=== PATIENT | female | born 1950 | race African-American/Black ===

== ENCOUNTER 2018-10-28 14:10 | Emergency (ER) | payer MEDICARE, MEDICAID ==
[~2018-10-28] VITALS: Ht 165.1 cm; Wt 76.0 kg
[2018-10-28 18:29] LABS: CHLORIDE 103 mEq/L (98-107)
[2018-10-28 18:30] LABS: INR 1.1; PROTHROMBIN TIME 10.8 sec (9.6-11.0)
[2018-10-28 18:35] LABS: BASOPHILS % 0.5 % (0.0-2.0); EOSINOPHILS % 1.6 % (0.0-5.0); HEMATOCRIT. 36.1 % (36.0-48.0); HEMOGLOBIN. 12.3 g/dL (12.0-16.0); LYMPHOCYTES % 33.7 % (20.0-50.0); MEAN CORPUSCULAR HEMOGLOBIN 31.9 pg (28.0-32.0); MEAN PLATELET VOLUME 8.9 fl (7.4-10.4); MONOCYTES % 8.4 % (2.0-8.0); NEUTROPHILS % 55.8 % (40.0-76.0); PLATELET 209 x1000/uL (130-400); RED BLOOD CELL COUNT 3.84 mill/uL (4.2-5.4); RED CELL DISTRIBUTION WIDTH 14.5 % (11.6-14.6)
[2018-10-28 18:41] LABS: CLARITY URINE CLOUDY (CLEAR); COLOR URINE YELLOW (YELLOW); KETONES URINE 1+ (NEGATIVE); LEUKOCYTE ESTERASE URINE 1+ (NEGATIVE); NITRITE URINE NEGATIVE (NEGATIVE); OCCULT BLOOD URINE NEGATIVE (NEGATIVE); PROTEIN URINE NEGATIVE (NEGATIVE)
[2018-10-28 20:55] VITALS: BP 173/92
== END 2018-10-28 20:58 | disposition home or self-care (01) ==
LOC: ER 14:10
DX: N39.0 Urinary tract infection, site not specified (principal); R33.9 Retention of urine, unspecified; K57.30 Diverticulosis of large intestine without perforation or abscess without bleeding; I10 Essential (primary) hypertension; Z90.710 Acquired absence of both cervix and uterus
CPT/HCPCS: 36415; 51702; 74176; 99284; A4315

== ENCOUNTER 2018-10-30 08:20 | Emergency (ER) | payer MEDICARE, MEDICAID ==
[~2018-10-30] VITALS: Ht 162.6 cm; Wt 73.0 kg
[2018-10-30 09:05] VITALS: BP 162/81
== END 2018-10-30 10:17 | disposition home or self-care (01) ==
LOC: ER 08:20
DX: R33.9 Retention of urine, unspecified (principal); I10 Essential (primary) hypertension; Z90.710 Acquired absence of both cervix and uterus
CPT/HCPCS: 99281

== ENCOUNTER 2019-03-29 07:10 | Emergency (ER) | payer MEDICARE, MEDICAID ==
[~2019-03-29] VITALS: Ht 165.1 cm; Wt 72.0 kg
[2019-03-29] MEDS ORDERED: IBUPROFEN 400MG TABLET PO ONE (07:45)
[2019-03-29 08:38] VITALS: BP 149/87
== END 2019-03-29 08:42 | disposition home or self-care (01) ==
LOC: ER 07:10
DX: M25.551 Pain in right hip (principal); M16.11 Unilateral primary osteoarthritis, right hip; I10 Essential (primary) hypertension; K57.90 Diverticulosis of intestine, part unspecified, without perforation or abscess without bleeding; Z90.710 Acquired absence of both cervix and uterus
CPT/HCPCS: 73502; 99283

== ENCOUNTER 2020-09-18 07:28 | Emergency (ER) | payer MEDICARE, MEDICAID ==
[~2020-09-18] VITALS: Ht 162.6 cm; Wt 70.0 kg
[2020-09-18] MEDS ORDERED: TOPUD PO (09:07)
[2020-09-18 09:39] VITALS: BP 135/85
== END 2020-09-18 09:41 | disposition home or self-care (01) ==
LOC: ER 07:28
DX: M79.662 Pain in left lower leg (principal); I10 Essential (primary) hypertension; H40.9 Unspecified glaucoma; Z90.710 Acquired absence of both cervix and uterus; Z87.19 Personal history of other diseases of the digestive system
CPT/HCPCS: 73502; 93971; 99284

== ENCOUNTER → 2022-01-11 | Day surgery (SDC) | payer MEDICARE, MEDICAID ==
[~2022-01-11] MED LIST: LIDOCAINE HCL 1% 30ML VIAL (10MG/ML) ONE; SODIUM BICARBONATE 4% (2.4MEQ) 5ML VIAL IV ONE; TOPUD PO
== END | disposition home or self-care (01) ==
LOC: RAD 08:57
PROVIDERS: ATTEND Internal Medicine Endocrinology, Diabetes & Metabolism
DX: E04.1 Nontoxic single thyroid nodule (principal); Z79.899 Other long term (current) drug therapy; Z98.890 Other specified postprocedural states
CPT/HCPCS: 10005; J3490